=== PATIENT | female | born 1960 | race Hispanic/Latino ===

== ENCOUNTER 2017-07-21 13:43 | Emergency (ER) | payer SELFPAY ==
[2017-07-21] MEDS ORDERED: ASPIRIN PO ONE (14:03)
[2017-07-21 14:50] LABS: Basophils # (Auto) 0.1 K/mm3 (0.0-0.1); Basophils % (Auto) 0.7 % (0.0-1.8); Eosinophils # (Auto) 0.1 K/mm3 (0.0-0.4); Eosinophils % (Auto) 0.3 % (0.0-4.3); Hematocrit 42.4 % (30.3-42.9); Hemoglobin 14.3 gm/dl (10.1-14.3); Lymphocytes # (Auto) 1.5 K/mm3 (1.2-5.4); Lymphocytes % (Auto) 9.8 % (13.4-35.0); Mean Corpuscular HGB Conc 34 % (30-34); Mean Corpuscular Hemoglobin 31 pg (28-32); Mean Corpuscular Volume 90 fl (79-97); Monocytes # (Auto) 0.7 K/mm3 (0.0-0.8); Monocytes % (Auto) 4.4 % (0.0-7.3); Platelet Count 259 K/mm3 (140-440); Red Cell Distribution Width 13.3 % (13.2-15.2)
[2017-07-21 15:11] LABS: Alanine Aminotransferase 28 units/L (7-56); Albumin 4.6 g/dL (3.9-5); BUN/Creatinine Ratio 19; Blood Urea Nitrogen 13 mg/dL (7-17); Calcium 8.9 mg/dL (8.4-10.2); Hemolysis Index 46; Lipase 28 units/L (13-60)
[2017-07-21] MEDS ORDERED: CATAPRES PO ONE (15:26)
[2017-07-21] MEDS ORDERED: ZOFRAN ODT PO ONE (15:27)
--- NOTE | 2017-07-21 15:48 | Cat Scan Report ---
FINAL REPORT EXAM: CT HEAD/BRAIN WO CON HISTORY: headache/dizziness TECHNIQUE: CT examination of the head without IV contrast PRIORS: None. FINDINGS: Minimal mucosal thickening right sphenoid sinus. No acute air-fluid level visualized in the included air-filled sinuses. Bone windows demonstrate no acute fracture. The brain is without mass, mass effect, hemorrhage, or acute infarct. There is no extra-axial intracranial bleed, brain bleed, or midline shift. The ventricles and sulci are age-appropriate. IMPRESSION: No acute CVA, intracranial bleed, or brain mass
[2017-07-21] MEDS ORDERED: MORPHINE IM ONE (17:13)
[2017-07-21] MEDS ORDERED: ZOFRAN IM ONE (17:13)
--- NOTE | 2017-07-21 17:19 | Emergency Department Report ---
ED General Adult HPI - General Chief complaint: Chest Pain Stated complaint: CHEST AND ABD PN Time Seen by Provider: 07/21/17 16:58 Source: patient Mode of arrival: Wheelchair Limitations: No Limitations - History of Present Illness Initial comments: Patient presents to emergency department with a complaint of abdominal pain for the last 3 days that has been consistent in nature with no significant alleviating or aggravating actions. Patient also complains nausea and vomiting for the time. Denies any diarrhea. Patient states that this happened to her last year around this time and she was told that she had gastroenteritis. Patient also complains of diffuse headache that she states she's had in the past and denies it being the worse headache of her life. Patient's BP is greater than 200 systolically on arrival she states that she has hypertension but does not take her metoprolol. Patient's abdominal pain although diffuse she does complain of epigastric pains as well but denies clara chest pain. Radiation: non-radiation Quality: constant Consistency: constant Improves with: none Worsens with: none Associated Symptoms: nausea/vomiting Treatments Prior to Arrival: none - Related Data Previous Rx's Medication Instructions Recorded Last Taken Type Hydrochlorothiazide [HCTZ] 25 mg PO QDAY #30 tablet 07/21/17 Unknown Rx Lisinopril [Prinivil] 10 mg PO DAILY #30 tablet 07/21/17 Unknown Rx Ondansetron [Zofran Odt] 4 mg PO Q6HR PRN #12 tab.rapdis 07/21/17 Unknown Rx Promethazine [Phenergan TAB] 25 mg PO Q6HR PRN #20 tab 07/21/17 Unknown Rx traMADol [Ultram] 50 mg PO Q6HR PRN #30 tablet 07/21/17 Unknown Rx Allergies Allergy/AdvReac Type Severity Reaction Status Date / Time No Known Allergies Allergy Unverified 07/21/17 14:02 ED Review of Systems ROS: Stated complaint: CHEST AND ABD PN Other details as noted in HPI Constitutional: denies: chills, fever Eyes: denies: eye pain, eye discharge, vision change ENT: denies: ear pain, throat pain Respiratory: denies: cough, shortness of breath, wheezing Cardiovascular: denies: chest pain, palpitations Endocrine: no symptoms reported Gastrointestinal: abdominal pain, nausea, vomiting. denies: diarrhea Genitourinary: denies: urgency, dysuria, discharge Musculoskeletal: denies: back pain, joint swelling, arthralgia Skin: denies: rash, lesions Neurological: denies: headache, weakness, paresthesias Psychiatric: denies: anxiety, depression Hematological/Lymphatic: denies: easy bleeding, easy bruising ED Past Medical Hx - Past Medical History Hx GERD: Yes Additional medical history: mitral valve reflux - Surgical History Hx Cholecystectomy: Yes (gallstones) Additional Surgical History: tubiligation, - Social History Smoking Status: Current Every Day Smoker Substance Use Type: None - Medications Home Medications: Home Medications Medication Instructions Recorded Confirmed Last Taken Type Hydrochlorothiazide [HCTZ] 25 mg PO QDAY #30 tablet 07/21/17 Unknown Rx Lisinopril [Prinivil] 10 mg PO DAILY #30 tablet 07/21/17 Unknown Rx Ondansetron [Zofran Odt] 4 mg PO Q6HR PRN #12 tab.rapdis 07/21/17 Unknown Rx Promethazine [Phenergan TAB] 25 mg PO Q6HR PRN #20 tab 07/21/17 Unknown Rx traMADol [Ultram] 50 mg PO Q6HR PRN #30 tablet 07/21/17 Unknown Rx ED Physical Exam - General Limitations: No Limitations General appearance: alert, in no apparent distress - Head Head exam: Present: atraumatic, normocephalic - Eye Eye exam: Present: normal appearance - ENT ENT exam: Present: mucous membranes moist - Neck Neck exam: Present: normal inspection - Respiratory Respiratory exam: Present: normal lung sounds bilaterally. Absent: respiratory distress - Cardiovascular Cardiovascular Exam: Present: regular rate, normal rhythm. Absent: systolic murmur, diastolic murmur, rubs, gallop - GI/Abdominal GI/Abdominal exam: Present: soft, normal bowel sounds, other (abdomen is diffusely tender on exam with normal bowel sounds) - Rectal Rectal exam: Present: deferred - External exam: Present: other (deferred) Speculum exam: Present: other (deferred) Bi-manual exam: Present: other (deferred) - Extremities Exam Extremities exam: Present: normal inspection - Back Exam Back exam: Present: normal inspection - Neurological Exam Neurological exam: Present: alert, oriented X3 - Psychiatric Psychiatric exam: Present: normal affect, normal mood - Skin Skin exam: Present: warm, dry, intact, normal color. Absent: rash ED Course Vital Signs 07/21/17 07/21/17 07/21/17 13:58 15:33 16:12 Temperature 98 F Pulse Rate 91 H 91 H Respiratory 20 Rate Blood Pressure 212/131 212/131 O2 Sat by Pulse 96 96 Oximetry 07/21/17 07/21/17 07/21/17 16:14 16:15 16:19 Temperature Pulse Rate 75 88 Respiratory 17 16 17 Rate Blood Pressure 229/123 231/137 O2 Sat by Pulse 97 98 97 Oximetry 07/21/17 07/21/17 07/21/17 16:30 16:45 17:00 Temperature Pulse Rate 89 89 85 Respiratory 20 24 13 Rate Blood Pressure 232/142 210/123 200/111 O2 Sat by Pulse 97 95 95 Oximetry 07/21/17 07/21/17 07/21/17 17:16 17:52 18:00 Temperature Pulse Rate 83 76 Respiratory 18 20 Rate Blood Pressure 197/103 220/106 220/106 O2 Sat by Pulse 93 95 94 Oximetry 07/21/17 07/21/17 18:15 18:30 Temperature Pulse Rate 77 79 Respiratory 17 18 Rate Blood Pressure 153/95 169/102 O2 Sat by Pulse 93 93 Oximetry ED Medical Decision Making - Lab Data Result diagrams: 07/21/17 14:39 07/21/17 14:39 - EKG Data -: EKG Interpreted by Pa EKG shows normal: sinus rhythm Rate: normal (85) - EKG Data Interpretation: no acute changes - Medical Decision Making Discussed results with patient and her spouse. Patient will be given prescriptions for her BP as well as for her nausea and vomiting. Critical care attestation.: If time is entered above; I have spent that time in minutes in the direct care of this critically ill patient, excluding procedure time. ED Disposition Clinical Impression: Abdominal pain, Nausea and vomiting, Hypertension, Nonspecific chest pain Disposition: DC-01 TO HOME OR SELFCARE Is pt being admited?: No Does the pt Need Aspirin: No Condition: Stable Instructions: Hypertension (ED), Chest Pain (ED) Prescriptions: Hydrochlorothiazide [HCTZ] 25 mg PO QDAY #30 tablet Lisinopril [Prinivil] 10 mg PO DAILY #30 tablet Ondansetron [Zofran Odt] 4 mg PO Q6HR PRN #12 tab.rapdis PRN Reason: Nausea Promethazine [Phenergan TAB] 25 mg PO Q6HR PRN #20 tab PRN Reason: Nausea traMADol [Ultram] 50 mg PO Q6HR PRN #30 tablet PRN Reason: Pain Referrals: PRIMARY CARE,MD [Primary Care Provider] - 3-5 Days
[2017-07-21] MEDS ORDERED: ASPIRIN ONE (17:30)
[2017-07-21] MEDS ORDERED: LEVAQUIN 750MG/150ML 750 MG/150 ML BAG IV ONE (17:42)
[2017-07-21] MEDS ORDERED: REGLAN IV ONE (17:51)
[2017-07-21 19:05] LABS: Bacteria,Urine 1+ /HPF (Negative); Bilirubin,Urine NEG (Negative); Blood,Urine NEG (Negative); Color,Urine Amber (Yellow); Hyaline Casts,Urine 1 /LPF; Mucus,Urine 2+ /HPF; Nitrite,Urine POS (Negative)
--- NOTE | 2017-07-21 19:26 | Cat Scan Report ---
FINAL REPORT EXAM: CT ABDOMEN PELVIS W CON HISTORY: abdominal pain TECHNIQUE: CT abdomen and pelvis with intravenous contrast PRIORS: None. FINDINGS: No acute abnormality identified in the lung bases. There are 2 low-density foci noted within the left lobe of the liver probable cyst or hemangioma. Patient is status post cholecystectomy. The spleen demonstrates normal size and attenuation. No pancreatic abnormalities seen. The kidneys demonstrate symmetric contrast enhancement. No evidence of hydronephrosis. Several tiny low-density foci are noted bilaterally too small to further characterize most likely cysts. The adrenal glands are unremarkable Abdominal aorta is normal in caliber. No pathologically enlarged lymph nodes are identified. No signs of free fluid or free air No evidence of small bowel dilatation. Colon is nondistended. No pericolonic inflammatory change. Scattered diverticula noted sigmoid colon without adjacent acute inflammatory change. The appendix is identified and is unremarkable. Urinary bladder is unremarkable. IMPRESSION: Low-density foci within the liver probable cyst or hemangioma Status post cholecystectomy No acute findings in the abdomen or pelvis
[2017-07-21] MEDS ORDERED: REGLAN ONE (19:52)
[2017-07-21] MEDS ORDERED: ATIVAN IV ONE (19:57)
[2017-07-21] MEDS ORDERED: ZOFRAN IV ONE (19:58)
[2017-07-21 21:53] VITALS: BP 152/85
== END 2017-07-21 21:23 | disposition home or self-care (01) ==
LOC: ED 13:43
DX: I10 Essential (primary) hypertension (principal); R11.2 Nausea with vomiting, unspecified; Z90.49 Acquired absence of other specified parts of digestive tract; Z98.51 Tubal ligation status; F17.200 Nicotine dependence, unspecified, uncomplicated
CPT/HCPCS: 36415; 70450; 74177; 80053; 81001; 83690; 84484; 85025; 93005; 93010; 96365; 96372; 96375; 99284; J1956; J2270; J2405; J2765; Q9967; Q0162